=== PATIENT | female | born 1990 | race Caucasian/White ===

== ENCOUNTER 2016-10-18 12:49 | Emergency (ER) | payer BC ==
[2016-10-18 13:12] VITALS: BP 144/87; PULSE 80; RESP 16; TEMP 97.4; O2SAT 98
[2016-10-18] MEDS ORDERED: ONDANSETRON 4 MG ODT BU ONE (13:40)
[2016-10-18] MEDS ORDERED: ONDANSETRON 4 MG ODT ONE (13:51)
== END 2016-10-18 13:55 | disposition home or self-care (01) ==
LOC: ED 12:49
DX: K52.9 Noninfective gastroenteritis and colitis, unspecified (principal)
CPT/HCPCS: 99282